=== PATIENT | male | born 1930 | race Caucasian/White ===

== ENCOUNTER 2016-08-14 09:25 | Outpatient (CLI) | payer MEDICARE | END 2016-08-14 09:26 | disposition home or self-care (01) | DX: E87.6 Hypokalemia (principal); N18.9 Chronic kidney disease, unspecified ==

== ENCOUNTER 2016-09-24 14:46 | Outpatient (CLI) | payer MEDICARE | END 2016-09-24 14:47 | disposition critical access hospital (66) | DX: K62.5 Hemorrhage of anus and rectum (principal); R19.7 Diarrhea, unspecified; Z79.01 Long term (current) use of anticoagulants | CPT/HCPCS: A0425; A0429 ==

== ENCOUNTER 2016-09-24 15:13 | Observation (INO) | payer MEDICARE ==
[2016-09-24] MEDS ORDERED: SODIUM CHLORIDE FLUSH 0.9% 10 ML SYRINGE IVP PRN (18:22)
[2016-09-24] MEDS ORDERED: ACETAMINOPHEN 325 MG SUPP PR PRN (20:35)
[2016-09-24] MEDS: FERROUS GLUCONATE 324 MG TABLET PO SCH (21:36)
[2016-09-24] MEDS: METOPROLOL TARTRATE 25 MG TABLET PO SCH (21:36)
[2016-09-24] MEDS: SODIUM CHLORIDE FLUSH 0.9% 10 ML SYRINGE IVP SCH (21:38)
[2016-09-25] MEDS: SODIUM CHLORIDE FLUSH 0.9% 10 ML SYRINGE IVP SCH ×2 (05:35→06:04)
[2016-09-25] MEDS ORDERED: PANTOPRAZOLE 40 MG TABLET PO SCH (07:00)
[2016-09-25] MEDS ORDERED: POTASSIUM CHLORIDE 20 MEQ TABLET PO ONE ×2 (07:02→11:00)
[2016-09-25] MEDS ORDERED: POTASSIUM CHLORIDE 20 MEQ TABLET PO SCH (08:00)
[2016-09-25] MEDS: METOPROLOL TARTRATE 25 MG TABLET PO SCH (08:06)
[2016-09-25] MEDS: FERROUS GLUCONATE 324 MG TABLET PO SCH (08:07)
[2016-09-25] MEDS ORDERED: POLYETHYLENE GLYCOL 3350 17 GM PACKET PO SCH (09:00)
[2016-09-25] MEDS ORDERED: MULTIVITAMIN TABLET PO SCH (09:00)
[2016-09-25] MEDS ORDERED: ALLOPURINOL 100 MG TABLET PO SCH (09:00)
[2016-09-25] MEDS ORDERED: LOSARTAN 50 MG TABLET PO SCH (09:00)
[2016-09-25] MEDS ORDERED: amLODIPine 5 MG TABLET PO SCH (09:00)
== END 2016-09-25 13:00 | disposition home or self-care (01) ==
DX: K92.1 Melena (principal); I48.91 Unspecified atrial fibrillation; Z79.02 Long term (current) use of antithrombotics/antiplatelets; I12.9 Hypertensive chronic kidney disease with stage 1 through stage 4 chronic kidney disease, or unspecified chronic kidney disease; N18.3 Chronic kidney disease, stage 3 (moderate); I08.1 Rheumatic disorders of both mitral and tricuspid valves; E87.6 Hypokalemia; F03.90 Unspecified dementia, unspecified severity, without behavioral disturbance, psychotic disturbance, mood disturbance, and anxiety; M10.9 Gout, unspecified; R33.9 Retention of urine, unspecified; K76.0 Fatty (change of) liver, not elsewhere classified; Z86.718 Personal history of other venous thrombosis and embolism; Z85.46 Personal history of malignant neoplasm of prostate; Z90.79 Acquired absence of other genital organ(s); Z79.899 Other long term (current) drug therapy
CPT/HCPCS: 36415; 80048; 80053; 83690; 85025; 85027; 85610; 85730; 86850; 86900; 86901; 99284; 99285; A9270; G0378

== ENCOUNTER 2016-10-09 13:33 | Day surgery (SDC) | payer MEDICARE ==
[2016-10-09] MEDS ORDERED: LACTATED RINGERS 1,000 ML IV ONE (14:06)
[2016-10-09] MEDS ORDERED: KETAMINE 500 MG/10 ML VIAL IVP ONE (14:10)
[2016-10-09] MEDS ORDERED: MIDAZOLAM 2 MG/2 ML VIAL IVP ONE (14:10)
[2016-10-09] MEDS ORDERED: PROPOFOL 200 MG/20 ML VIAL IVP ONE (14:10)
[2016-10-09] MEDS ORDERED: GLYCOPYRROLATE 1 MG/5 ML VIAL IVP ONE (14:10)
[2016-10-09 15:50] VITALS: BP 159/80
== END 2016-10-09 13:34 | disposition home or self-care (01) ==
LOC: SDS 13:33
PROVIDERS: ATTEND Surgery
PROC: 0DBH8ZZ Excision of Cecum, Via Natural or Artificial Opening Endoscopic (ICD-10-PCS; principal; 2016-10-09 14:15)
DX: K92.1 Melena (principal); D12.0 Benign neoplasm of cecum; I48.91 Unspecified atrial fibrillation; I50.9 Heart failure, unspecified; I10 Essential (primary) hypertension; F03.90 Unspecified dementia, unspecified severity, without behavioral disturbance, psychotic disturbance, mood disturbance, and anxiety; K64.8 Other hemorrhoids; K64.4 Residual hemorrhoidal skin tags
CPT/HCPCS: 45380; 88305; J7120

== ENCOUNTER 2016-11-18 14:16 | Outpatient (CLI) | payer MEDICARE | END 2016-11-18 14:17 | disposition home or self-care (01) | LOC: LAB.F 14:16 | PROVIDERS: ATTEND Physician Assistant Medical | DX: K62.5 Hemorrhage of anus and rectum (principal) ==

== ENCOUNTER 2016-11-18 16:49 | Outpatient (CLI) | payer MEDICARE | END 2016-11-18 16:50 | disposition critical access hospital (66) | LOC: EMS 16:49 | PROVIDERS: ATTEND Surgery | DX: K62.5 Hemorrhage of anus and rectum (principal) | CPT/HCPCS: A0425; A0429 ==

== ENCOUNTER 2016-11-18 17:14 | Emergency (ER) | payer MEDICARE ==
--- NOTE | 2016-11-18 17:21 | ED Physician Documentation ---
PD HPI GI BLEED - Stated complaint Stated Complaint: GI BLEED - History obtained from History obtained from: Patient, EMS - History of Present Illness Timing - onset: Other (86-year-old gentleman on Xarelto who was admitted here a few months ago for GI bleed, followup colonoscopy with polyp and internal hemorrhoids likely as the cause of lower GI bleeding. He's had spotting on and off for a month and when he mentioned it to the nurse at the assisted-living facility today he was transferred here for evaluation. There is no associated abdominal or rectal pain) Review of Systems Constitutional: denies: Fever, Chills GI: denies: Abdominal Pain, Nausea, Vomiting, Constipation, Diarrhea : reports: Reviewed and negative PD PAST MEDICAL HISTORY - Past Medical History Cardiovascular: Hypertension, Atrial fibrillation Respiratory: Shortness of breath, Sleep apnea Neuro: Dementia Endocrine/Autoimmune: None GI: GI bleed : None HEENT: Other Psych: None Musculoskeletal: None - Past Surgical History Past Surgical History: Yes HEENT: Tonsil/Adenoidectomy - Present Medications Home Medications: Ambulatory Orders Medication Instructions Recorded Confirmed Allopurinol 150 mg PO DAILY 10/21/12 11/18/16 Hydrochlorothiazide 25 mg PO QAM 10/21/12 11/18/16 Multivitamin [Multivitamins] 1 each PO DAILY 10/21/12 11/18/16 Acetaminophen [Tylenol] 650 mg NM Q6H PRN 11/16/12 11/18/16 Ferrous Gluconate 325 mg PO BID 07/21/15 11/18/16 Losartan Potassium 100 mg PO DAILY 07/21/15 11/18/16 Metoprolol Tartrate 25 mg PO TID 07/21/15 11/18/16 Omeprazole 20 mg PO DAILY 07/21/15 11/18/16 Potassium Chloride [Klor-Con] 20 meq PO BID 07/21/15 11/18/16 Rivaroxaban [Xarelto] 20 mg PO DAILY 11/18/16 11/18/16 - Allergies Allergies/Adverse Reactions: Allergies Allergy/AdvReac Type Severity Reaction Status Date / Time oxycodone [Oxycodone] Allergy Intermediate Rash Verified 11/18/16 17:20 oxycodone HCl * Allergy Intermediate Rash Verified 11/18/16 17:20 [From Percocet] Penicillins Allergy Mild Rash Verified 11/18/16 17:20 acetaminophen [From Tylox] Allergy Unknown Verified 11/18/16 17:20 - Social History Does the pt smoke?: No Smoking Status: Never smoker Does the pt drink ETOH?: No Does the pt have substance abuse?: No - Immunizations Immunizations are current?: Yes PD ED PE NORMAL - Vitals Vital signs reviewed: Yes - General General: No acute distress, Well developed/nourished - Abdomen Abdomen: Soft, Non tender - Rectal Rectal: Other (small BRB) - Neuro Neuro: No motor deficit, No sensory deficit - Psych Psych: Normal mood, Normal affect Results - Vitals Vitals: Vital Signs - 24 hr 11/18/16 17:18 Temperature 36.5 C Heart Rate 73 Respiratory 20 Rate Blood Pressure 179/99 H O2 Saturation 98 Oxygen O2 Source [With Activity] Room air O2 Source Room air - Labs Labs: Laboratory Tests 11/18/16 11/18/16 11/18/16 17:37 17:37 17:48 WBC 4.2 L RBC 3.34 L Hgb 10.9 L Hct 32.5 L MCV 97.1 H MCH 32.5 H MCHC 33.5 RDW 18.3 H Plt Count 172 MPV 7.5 Neut # 2.9 Lymph # 0.9 L [place] # 0.2 Eos # 0.2 Baso # 0.0 Absolute Nucleated RBC 0.00 Nucleated RBCs 0.1 Sodium 135 Potassium 3.8 Chloride 97 L Carbon Dioxide 27 Anion Gap 11.0 BUN 34 H Creatinine 1.1 Estimated GFR (MDRD) 64 L Glucose 111 H Calcium 9.0 Total Bilirubin 1.3 H AST 29 ALT 26 Alkaline Phosphatase 290 H Total Protein 7.7 Albumin 3.5 Globulin 4.2 Albumin/Globulin Ratio 0.8 L Lipase 21 L Urine Color YELLOW Urine Clarity CLOUDY Urine pH 7.0 Ur Specific [place] 1.015 Urine Protein 100 H Urine Glucose (UA) NEGATIVE Urine Ketones NEGATIVE Urine Occult Blood LARGE H Urine Nitrite NEGATIVE Urine Bilirubin NEGATIVE Urine Urobilinogen 0.2 (NORMAL) Ur Leukocyte Esterase NEGATIVE Urine RBC TNTC H Urine WBC 0-3 Ur Squamous Epith Cells NONE SEEN Urine Bacteria None Seen Ur Microscopic Review INDICATED Urine Culture Comments NOT INDICATED PD MEDICAL DECISION MAKING - ED course ED course: 86-year-old gentleman presents with ongoing but light rectal bleeding in the setting of known internal hemorrhoids and a colonoscopy just over a month ago. His H&H as well as other lab abnormalities including elevated BUN, alkaline Phosphatase, and hematuria are chronic. It doesn't sound like he's had a workup for the hematuria though. He does have some memory difficulties. Given that he does not recall the c-scope, might he have had a cysto and does not remember? He asked me to try to call his girlfriend, there was no answer I left a message to call back. She did call back and dxs were discussed. Asked her to make sure he gets in with PCP to see if he should still be on anticoagulation and if he has had urology w/u- if not needs one. Departure - Departure Disposition: 01 Home, Self Care Clinical Impression: Rectal bleeding, Hematuria, Adequate anticoagulation on anticoagulant therapy Condition: Good Record reviewed to determine appropriate education?: Yes Instructions: ED Hematochezia Stable Comments: If you have not had a workup for your hematuria ("blood in the urine"), you need to see a urologist. The closest to you is in [place], call [phone] for an appointment. Call your doctor to arrange a follow up appointment. Make the next available appointment. In the interim return anytime if worse or if new symptoms develop. Your blood pressure was elevated today on check in to the emergency department. This does not mean that you have hypertension, it is a common phenomenon to check into the emergency department and have elevated blood pressure. I recommend that you see your primary care physician within the week to have it rechecked when you're feeling better.
[2016-11-18 17:55] LABS: EOSINOPHILS # (AUTO) 0.2 10^3/uL (0.0-0.7); EOSINOPHILS % (AUTO) 3.8 %; HCT - HEMATOCRIT 32.5 % (42.0-52.0); HGB - HEMOGLOBIN 10.9 g/dL (14.0-18.0); LYMPHOCYTES # (AUTO) 0.9 10^3/uL (1.5-3.5); LYMPHOCYTES % (AUTO) 20.7 %; MEAN CORPUSCULAR HEMOGLOBIN 32.5 pg (27.0-31.0); MEAN CORPUSCULAR HGB CONC 33.5 g/dL (32.0-36.0); MEAN CORPUSCULAR VOLUME 97.1 fL (80.0-94.0); MEAN PLATELET VOLUME 7.5 fL (7.4-11.4); MONOCYTES # (AUTO) 0.2 10^3/uL (0.0-1.0); MONOCYTES % (AUTO) 5.3 %; NEUTROPHILS # (AUTO) 2.9 10^3/uL (1.5-6.6); NEUTROPHILS % (AUTO) 69.2 %; NUCLEATED RED BLOOD CELLS AUTO 0.1 /100WBC; RED BLOOD COUNT 3.34 10^6/uL (4.70-6.10); RED CELL DISTRIBUTION WIDTH 18.3 % (12.0-15.0); UNCORRECTED WHITE BLOOD COUNT 4.2 x10^3/uL; WHITE BLOOD COUNT 4.2 x10^3/uL (4.8-10.8)
[2016-11-18 18:06] LABS: BILIRUBIN,URINE NEGATIVE (NEGATIVE)
[2016-11-18 18:09] LABS: ALBUMIN/GLOBULIN RATIO 0.8 (1.0-2.2); BILIRUBIN,TOTAL 1.3 mg/dL (0.2-1.0); CREATININE 1.1 mg/dL (0.6-1.2); POTASSIUM 3.8 mmol/L (3.5-5.0); TOTAL PROTEIN 7.7 g/dL (6.7-8.2)
[2016-11-18 18:13] LABS: UA w/ MICROSCOPIC CHARGE YES
[2016-11-18 18:28] LABS: UR CULTURE IF IND NOT INDICATED; WBC,URINE 0-3 /HPF (0-3)
[2016-11-18 19:19] VITALS: BP 164/88
== END 2016-11-18 20:08 | disposition home or self-care (01) ==
LOC: EDUNIT# → ED 17:14
DX: K62.5 Hemorrhage of anus and rectum (principal); R31.9 Hematuria, unspecified; I48.91 Unspecified atrial fibrillation; Z79.01 Long term (current) use of anticoagulants; K63.5 Polyp of colon; K64.8 Other hemorrhoids; I10 Essential (primary) hypertension; F03.90 Unspecified dementia, unspecified severity, without behavioral disturbance, psychotic disturbance, mood disturbance, and anxiety; G47.30 Sleep apnea, unspecified
CPT/HCPCS: 36415; 80053; 81001; 81003; 81599; 82784; 82787; 83010; 83615; 83690; 83883; 84155; 84165; 85025; 85044; 86334; 86850; 86900; 86901; 87086; 99283; 99284

== ENCOUNTER 2017-01-18 05:07 | Outpatient (CLI) | payer MEDICARE | END 2017-01-18 05:08 | disposition EMS.NT | LOC: EMS 05:07 | PROVIDERS: ATTEND Surgery | DX: Z03.89 Encounter for observation for other suspected diseases and conditions ruled out (principal); W06.XXXA Fall from bed, initial encounter; Y92.10 Unspecified residential institution as the place of occurrence of the external cause ==

== ENCOUNTER 2017-01-27 08:05 | Outpatient (CLI) | payer MEDICARE | END 2017-01-27 08:06 | disposition critical access hospital (66) | LOC: EMS 08:05 | PROVIDERS: ATTEND Surgery | DX: K92.1 Melena (principal) | CPT/HCPCS: A0425; A0429 ==

== ENCOUNTER 2017-01-27 08:32 | Observation (INO) | payer MEDICARE ==
[2017-01-27] MEDS ORDERED: SODIUM CHLORIDE 0.9% 1,000 ML IV ONE (08:57)
[2017-01-27 09:23] LABS: BASOPHILS % (AUTO) 0.9 %; EOSINOPHILS % (AUTO) 0.6 %; HCT - HEMATOCRIT 28.5 % (42.0-52.0); HGB - HEMOGLOBIN 9.6 g/dL (14.0-18.0); LYMPHOCYTES # (AUTO) 0.4 10^3/uL (1.5-3.5); LYMPHOCYTES % (AUTO) 8.8 %; MEAN CORPUSCULAR HEMOGLOBIN 33.1 pg (27.0-31.0); MEAN CORPUSCULAR HGB CONC 33.7 g/dL (32.0-36.0); MEAN CORPUSCULAR VOLUME 98.2 fL (80.0-94.0); MEAN PLATELET VOLUME 6.8 fL (7.4-11.4); MONOCYTES # (AUTO) 0.2 10^3/uL (0.0-1.0); MONOCYTES % (AUTO) 4.7 %; NEUTROPHILS # (AUTO) 3.6 10^3/uL (1.5-6.6); NUCLEATED RED BLOOD CELLS AUTO 0.1 /100WBC; RED BLOOD COUNT 2.91 10^6/uL (4.70-6.10); UNCORRECTED WHITE BLOOD COUNT 4.3 x10^3/uL; WHITE BLOOD COUNT 4.3 x10^3/uL (4.8-10.8)
--- NOTE | 2017-01-27 09:30 | ED Physician Documentation ---
History of Present Illness - Stated complaint Stated Complaint: GI BLEED - Chief complaint Chief Complaint: Abd Pain - Additonal information Additional information: hx from pt 86 male from [place] pmhx autoimmune hemolytic anemia, CRF, monoclonal gammopathy, a fib DNR limited per EMS hx polyps removed from colon last spring, per MAC note had an int hemorrhoid, per op note pt had a cecal polyp and int hemorrhoids int has blood in BM heavy BRBPR today pt denies CP AP denies SOA NVD no blood thinners besides asa on MAR from [place] but MAC note dated states pt on coumadin, and dc summary from October 2016 states xarelto - pt does not know Review of Systems Constitutional: denies: Fever, Chills Cardiac: denies: Chest pain / pressure Respiratory: denies: Dyspnea GI: reports: Bloody / black stool. denies: Abdominal Pain, Nausea, Vomiting Neurologic: denies: Generalized weakness Endocrine: denies: Easy bruising / bleeding Immunocompromised: denies: Immunocompromised PD PAST MEDICAL HISTORY - Past Medical History Past Medical History: Yes Cardiovascular: Hypertension, Atrial fibrillation Respiratory: Shortness of breath, Sleep apnea Neuro: Dementia Endocrine/Autoimmune: None GI: GI bleed : None HEENT: Other Psych: None Musculoskeletal: None - Past Surgical History Past Surgical History: Yes General: Colonoscopy HEENT: Tonsil/Adenoidectomy - Present Medications Home Medications: Ambulatory Orders Medication Instructions Recorded Confirmed Metoprolol Tartrate 25 mg PO TID 07/21/15 01/27/17 Potassium Chloride [Klor-Con] 20 meq PO BID 07/21/15 01/27/17 Rivaroxaban [Xarelto] 20 mg PO DAILY 11/18/16 01/27/17 Acetaminophen 650 mg PO Q4H PRN 01/27/17 01/27/17 Allopurinol 150 mg PO DAILY 01/27/17 01/27/17 Cetirizine HCl 10 mg PO DAILY 01/27/17 01/27/17 Ferrous Gluconate 324 mg PO BID 01/27/17 01/27/17 Hydrochlorothiazide 25 mg PO DAILY 01/27/17 01/27/17 Losartan Potassium 100 mg PO DAILY 01/27/17 01/27/17 Multivitamin [Multivitamins] 1 cap PO DAILY 08/22/17 08/22/17 Omeprazole 20 mg PO DAILY 01/27/17 01/27/17 - Allergies Allergies/Adverse Reactions: Allergies Allergy/AdvReac Type Severity Reaction Status Date / Time oxycodone [Oxycodone] Allergy Intermediate Rash Verified 11/18/16 17:20 oxycodone HCl * Allergy Intermediate Rash Verified 11/18/16 17:20 [From Percocet] Penicillins Allergy Mild Rash Verified 11/18/16 17:20 - Social History Does the pt smoke?: No Smoking Status: Never smoker Does the pt drink ETOH?: No Does the pt have substance abuse?: No - Immunizations Immunizations are current?: Yes - POLST Patient has POLST: Yes PD ED PE NORMAL - Vitals Vital signs reviewed: Yes - Neck Neck: Supple, no meningeal sign - Cardiac Cardiac: RRR - Respiratory Respiratory: No respiratory distress, Clear bilaterally - Abdomen Abdomen: Soft, Non tender - Rectal Rectal: Other (no hemorrhoid, no fissure, no mass on BIRD, tete BRBPR) - Derm Derm: Normal color - Neuro Neuro: No: Alert and oriented X 3 (confused) Results - Vitals Vitals: Vital Signs - 24 hr 01/27/17 01/27/17 01/27/17 08:37 09:53 11:00 Temperature 36.7 C Heart Rate 91 81 97 Respiratory 18 18 Rate Blood Pressure 159/95 H 159/88 H 151/76 H O2 Saturation 100 99 95 Oxygen O2 Source [With Activity] Room air O2 Source Room air - EKG (time done) 0910 Rate: Rate (enter#) Rhythm: Atrial fibrillation (not new) [place]: Normal Intervals: Normal [place], RBBB Compare to prior EKG: Changed from prior EKG (RBBB is new) - Labs Labs: Laboratory Tests 01/27/17 01/27/17 01/27/17 09:14 09:14 09:14 WBC 4.3 L RBC 2.91 L Hgb 9.6 L Hct 28.5 L MCV 98.2 H MCH 33.1 H MCHC 33.7 RDW 19.0 H Plt Count 136 MPV 6.8 L Neut # 3.6 Lymph # 0.4 L [place] # 0.2 Eos # 0.0 Baso # 0.0 Absolute Nucleated RBC 0.00 Nucleated RBCs 0.1 PT 20.8 H INR 1.8 H Sodium 135 Potassium 3.3 L Chloride 102 Carbon Dioxide 22 Anion Gap 11.0 BUN 37 H Creatinine 1.4 H Estimated GFR (MDRD) 48 L Glucose 92 Calcium 8.5 Total Bilirubin 2.3 H AST 34 ALT 20 Alkaline Phosphatase 315 H Troponin I Total Protein 7.3 Albumin 3.1 L Globulin 4.2 Albumin/Globulin Ratio 0.7 L Lipase 19 L Blood Type Antibody Screen 01/27/17 01/27/17 09:14 09:14 WBC RBC Hgb Hct MCV MCH MCHC RDW Plt Count MPV Neut # Lymph # [place] # Eos # Baso # Absolute Nucleated RBC Nucleated RBCs PT INR Sodium Potassium Chloride Carbon Dioxide Anion Gap BUN Creatinine Estimated GFR (MDRD) Glucose Calcium Total Bilirubin AST ALT Alkaline Phosphatase Troponin I < 0.04 Total Protein Albumin Globulin Albumin/Globulin Ratio Lipase Blood Type A POSITIVE Antibody Screen NEGATIVE PD MEDICAL DECISION MAKING - ED course ED course: called Angely Lott back and got an updated MAR - pt is indeed on xarelto Hgb dropped from 10.9-9.6 - will admit to medicine with surgical consult also note bili has risen - pt has no abd pain at this time - perhaps can get GB sono while admitted but don't feel needs to be done in ER new RBBB - no CP - will add on trop (neg) seen by hospitalist who rec observation Departure - Departure Disposition: ED Place in Observation Clinical Impression: GI bleeding Qualifiers: GI bleed type/associated pathology: unspecified gastrointestinal hemorrhage type Qualified Code(s): K92.2 - Gastrointestinal hemorrhage, unspecified Condition: Fair Discharge Date/Time: 01/27/17 12:20
[2017-01-27 09:36] LABS: ALBUMIN/GLOBULIN RATIO 0.7 (1.0-2.2); BILIRUBIN,TOTAL 2.3 mg/dL (0.2-1.0); CALCIUM 8.5 mg/dL (8.5-10.3); CREATININE 1.4 mg/dL (0.6-1.2); POTASSIUM 3.3 mmol/L (3.5-5.0); TOTAL PROTEIN 7.3 g/dL (6.7-8.2)
[2017-01-27 09:39] LABS: INR 1.8 (0.8-1.2); PT - PROTHROMBIN TIME 20.8 secs (9.9-12.6)
[2017-01-27] MEDS ORDERED: ONDANSETRON ODT 4 MG TABLET TL PRN (11:39)
[2017-01-27] MEDS ORDERED: ACETAMINOPHEN 325 MG TABLET PO PRN (11:39)
[2017-01-27] MEDS ORDERED: ONDANSETRON 4 MG/2 ML VIAL IVP PRN (11:39)
[2017-01-27] MEDS ORDERED: SODIUM CHLORIDE FLUSH 0.9% 10 ML SYRINGE IVP PRN (11:39)
[2017-01-27] MEDS ORDERED: oxyCODONE 5 MG TABLET PO PRN (11:39)
[2017-01-27] MEDS: SODIUM CHLORIDE 0.9% 1,000 ML IV SCH (13:20)
[2017-01-27] MEDS: METOPROLOL TARTRATE 25 MG TABLET PO SCH ×2 (13:30→21:14)
[2017-01-27] MEDS: POTASSIUM CHLOR 10 MEQ/100 ML 100 ML IV SCH ×3 (13:31→17:13)
[2017-01-27] MEDS: SODIUM CHLORIDE FLUSH 0.9% 10 ML SYRINGE IVP SCH ×2 (13:32→21:15)
[2017-01-27 14:33] LABS: BASOPHILS % (AUTO) 0.4 %; EOSINOPHILS % (AUTO) 0.5 %; HCT - HEMATOCRIT 29.8 % (42.0-52.0); HGB - HEMOGLOBIN 10.1 g/dL (14.0-18.0); LYMPHOCYTES # (AUTO) 0.3 10^3/uL (1.5-3.5); LYMPHOCYTES % (AUTO) 5.6 %; MEAN CORPUSCULAR HEMOGLOBIN 33.1 pg (27.0-31.0); MEAN CORPUSCULAR HGB CONC 33.7 g/dL (32.0-36.0); MEAN CORPUSCULAR VOLUME 98.2 fL (80.0-94.0); MEAN PLATELET VOLUME 7.3 fL (7.4-11.4); MONOCYTES # (AUTO) 0.1 10^3/uL (0.0-1.0); MONOCYTES % (AUTO) 2.1 %; NEUTROPHILS # (AUTO) 4.8 10^3/uL (1.5-6.6); NEUTROPHILS % (AUTO) 91.4 %; RED BLOOD COUNT 3.04 10^6/uL (4.70-6.10); RED CELL DISTRIBUTION WIDTH 19.1 % (12.0-15.0); UNCORRECTED WHITE BLOOD COUNT 5.3 x10^3/uL; WHITE BLOOD COUNT 5.3 x10^3/uL (4.8-10.8)
[2017-01-27 15:32] LABS: NP AUTO DIFFERENTIAL? NO; NP MAN DIFFERENTIAL? YES; PLATELET ESTIMATE, MANUAL NORMAL (130-450,000) (NORMAL); PLATELET MORPHOLOGY NORMAL APPEARANCE (NORMAL)
[2017-01-27 20:00] LABS: BASOPHILS # (AUTO) 0.1 10^3/uL (0.0-0.1); BASOPHILS % (AUTO) 0.8 %; HCT - HEMATOCRIT 28.8 % (42.0-52.0); HGB - HEMOGLOBIN 9.8 g/dL (14.0-18.0); LYMPHOCYTES # (AUTO) 0.3 10^3/uL (1.5-3.5); MEAN CORPUSCULAR HEMOGLOBIN 33.6 pg (27.0-31.0); MEAN CORPUSCULAR HGB CONC 34.1 g/dL (32.0-36.0); MEAN CORPUSCULAR VOLUME 98.6 fL (80.0-94.0); MEAN PLATELET VOLUME 7.4 fL (7.4-11.4); MONOCYTES # (AUTO) 0.2 10^3/uL (0.0-1.0); MONOCYTES % (AUTO) 3.2 %; NEUTROPHILS # (AUTO) 5.6 10^3/uL (1.5-6.6); RED BLOOD COUNT 2.92 10^6/uL (4.70-6.10); RED CELL DISTRIBUTION WIDTH 19.1 % (12.0-15.0); UNCORRECTED WHITE BLOOD COUNT 6.2 x10^3/uL; WHITE BLOOD COUNT 6.2 x10^3/uL (4.8-10.8)
[2017-01-27] MEDS ORDERED: MIRTAZAPINE 15 MG TABLET PO SCH (21:00)
[2017-01-27] MEDS: POTASSIUM CHLORIDE 20 MEQ TABLET PO SCH (21:12)
[2017-01-28] MEDS: SODIUM CHLORIDE 0.9% 1,000 ML IV SCH (01:35)
[2017-01-28] MEDS: SODIUM CHLORIDE FLUSH 0.9% 10 ML SYRINGE IVP SCH (05:25)
[2017-01-28] MEDS: METOPROLOL TARTRATE 25 MG TABLET PO SCH (05:33)
[2017-01-28 06:12] LABS: BASOPHILS % (AUTO) 0.6 %; EOSINOPHILS % (AUTO) 0.5 %; HCT - HEMATOCRIT 28.7 % (42.0-52.0); HGB - HEMOGLOBIN 9.7 g/dL (14.0-18.0); LYMPHOCYTES # (AUTO) 0.6 10^3/uL (1.5-3.5); LYMPHOCYTES % (AUTO) 12.1 %; MEAN CORPUSCULAR HEMOGLOBIN 33.6 pg (27.0-31.0); MEAN CORPUSCULAR HGB CONC 33.8 g/dL (32.0-36.0); MEAN CORPUSCULAR VOLUME 99.4 fL (80.0-94.0); MEAN PLATELET VOLUME 7.7 fL (7.4-11.4); MONOCYTES # (AUTO) 0.2 10^3/uL (0.0-1.0); MONOCYTES % (AUTO) 5.2 %; NEUTROPHILS # (AUTO) 3.9 10^3/uL (1.5-6.6); NEUTROPHILS % (AUTO) 81.6 %; RED BLOOD COUNT 2.89 10^6/uL (4.70-6.10); RED CELL DISTRIBUTION WIDTH 19.3 % (12.0-15.0); UNCORRECTED WHITE BLOOD COUNT 4.7 x10^3/uL; WHITE BLOOD COUNT 4.7 x10^3/uL (4.8-10.8)
[2017-01-28 06:21] LABS: ALBUMIN/GLOBULIN RATIO 0.8 (1.0-2.2); BILIRUBIN,TOTAL 2.7 mg/dL (0.2-1.0); CALCIUM 8.1 mg/dL (8.5-10.3); CREATININE 1.2 mg/dL (0.6-1.2); POTASSIUM 3.7 mmol/L (3.5-5.0); TOTAL PROTEIN 6.6 g/dL (6.7-8.2)
--- NOTE | 2017-01-28 08:01 | Discharge Plan ---
Discharge Plan Disposition: 01 Home, Self Care Condition: Fair Diet: Regular Activity Restrictions: Activity as Tolerated Shower Restrictions: No Driving Restrictions: Yes (no driving) Additional Instructions or Follow Up instructions: You were brought to the hospital because you've been having blood in your stool and on your rectum when you wipe. You did the same thing in September of this year and a colonoscopy revealed internal hemorrhoids as the cause of bleeding. We think the problem is that you're on blood thinners for your initial fibrillation. Those blood thinners reduce your risk of stroke. However, you also have internal hemorrhoids. Internal hemorrhoids have a tendency to bleed anyway. But your blood thinner makes you bleed more. In weighing the risk and benefits of you staying on a blood thinner, it is clear that you have a tendency to bleed enough to need transfusions. With this admission, you did not require transfusions. As such we're recommending that you stop your blood thinner. However, please discuss this with your primary care provider. You and he, after discussion, may up with a different conclusion. No Smoking: If you smoke, Please STOP! Call for help.
[2017-01-28 08:07] VITALS: BP 167/90
[2017-01-28] MEDS ORDERED: CETIRIZINE 10 MG TABLET PO SCH (09:00)
[2017-01-28] MEDS ORDERED: LOSARTAN 50 MG TABLET PO SCH (09:00)
[2017-01-28] MEDS ORDERED: ALLOPURINOL 100 MG TABLET PO SCH (09:00)
[2017-01-28] MEDS ORDERED: POLYETHYLENE GLYCOL 3350 17 GM PACKET PO SCH (09:00)
[2017-01-28] MEDS: POTASSIUM CHLORIDE 20 MEQ TABLET PO SCH (09:07)
--- NOTE | 2017-01-28 16:54 | DISCHARGE SUMMARY ---
DATE OF ADMISSION: 01/27/2017 DATE OF DISCHARGE: 01/28/2017 DISCHARGE DIAGNOSES: 1. Melena. 2. Long-term current use of anticoagulants. 3. Internal hemorrhoids. 4. Hypokalemia. 5. Memory loss. DISCHARGE MEDICATIONS: 1. Acetaminophen 650 mg p.o. q.4h. p.r.n.. 2. Allopurinol 150 mg p.o. daily. 3. Cetirizine 10 mg p.o. daily. 4. Ferrous gluconate 324 mg p.o. b.i.d.. 5. Hydrochlorothiazide 25 mg daily. 6. Klor Con 20 mEq p.o. b.i.d.. 7. Losartan 100 mg p.o. daily. 8. Metoprolol 25 mg p.o. t.i.d.. 9. Multivitamin 1 p.o. daily. 10. Omeprazole 20 mg p.o. daily. Xarelto has been discontinued. HOSPITAL COURSE: This gentleman is an 86-year-old man who has a documented history of internal hemorr hoids from a previous lower GI bleed admission. He was admitted 09/2016 for melena and anemia. He rec eived transfusions. In the outpatient setting a colonoscopy in 10/2016 showed him to have a benign tu bular adenoma, and internal hemorrhoids that were most likely the source of his bleeding according to General Surgery. He is on Xarelto for atrial fibrillation. He lives in an assisted living facility a nd has continued to have bright red blood per rectum intermittently. Over the last few days he has craft d more bleeding than usual, and increased amount and alarmed the family and his assisted living facil ity and as such, he was brought to the hospital. In the hospital, he has stable vital signs at 159/95 , pulse 91. He is oxygenating well on room air. He is a vague, slightly disoriented, forgetful elderl y man in no acute distress. Hemoglobin was 9.6. His hemoglobin on 11/2014 was 10.9. His hemoglobin was 11.1 and 10.8. He was placed in observation overnight for GI bleed. He remained hemodynamically stable. He was not t achycardic and blood pressure remained slightly elevated. Serial CBC showed hemoglobin to be stable a t 9.8-9.7. I discussed the case with his power of hard rock miner blasting and his daughter. I explained to her that I think the source of his bleeding is internal hemorrhoids from the continued Xarelto. Her name was Vania Ashley at phone number [phone]. I also spoke to his girlfriend, Jenifer Abreu, at [phone]. I stopped his Xarelto and have recommended that he be seen in followup with his prior primary care pr samy. If he continues to have rectal bleeding from the internal hemorrhoids consider hemorrhoidecto my or hemorrhoid banding. As such, he is discharged in stable condition. His blood pressure at the time of discharge is 167/90 with a pulse of 80, respirations 16 and temperature is 37.1. He is a lean, lanky, tall, vague elderly gentleman. Male pattern baldness, salt and pepper gabriel hair that remains. Neck is supple. No JVD, sl ightly kyphotic posture and with clear lungs, a slow irregular rate and rhythm with a soft systolic e jection murmur left lower sternal border. Abdomen is soft, nontender and without organomegaly and nor mal bowel sounds. The ankles had no edema. He was able to be independent with he was able to get up t o the edge of the bed and be independent with regards to going to the bathroom and only needed standb y assistance. He is encouraged to followup with his primary care provider Natalio Landrum. I have discussed the case wi th his daughter. I again reminded that he is going to be off Xarelto. If his primary care provider wi shes to discuss that with the patient or get a second opinion, that would be great. JOB #: [id number] EXT JOB #:[id number]
--- NOTE | 2017-01-29 11:00 | HISTORY & PHYSICAL EXAMINATION ---
DATE OF ADMISSION: 01/27/2017 PRIMARY CARE PROVIDER: Edin Andres MD. ADMITTING PROVIDER: Isa Mayes MD. CHIEF COMPLAINT: Bright red blood per rectum. HISTORY OF PRESENT ILLNESS: The patient is an 86-year-old white man who already has anemia of chronic disease, autoimmune hemolytic anemia, and iron deficiency anemia. He was admitted with bright red bl ood per rectum, September 2016, with a concomitant disorder of atrial fibrillation on anticoagulation. Du ring that stay, he did receive a couple of units of packed cells. He was sent home after hemoglobin r emained stable, and he was monitored. He was seen in the outpatient setting by General Surgery and un derwent a colonoscopy in October 2016 and found to have a benign tubular adenoma, as well as internal hem orrhoids. In the body of the report, the surgeon feels that his lower GI bleeding from September 2016 was attributed to internal hemorrhoids. The patient lives at [facility]. Prior to living at [facility], he was living independently but not doing very well. He was ignoring his hygiene. He had not bathed for a month. Not feeding himself. He was not able to pay his bills, so his daughter took over. She is now his power of balloon design printer. She plac ed him at [facility], and she feels that he has improved with regard to food, hygiene, but the overa ll will to live seems to be diminished. He is sleeping more and more. Mentally, he is less and less w ith it. His daughter pays the bills. She has long-term plans for him to remain at [facility]. As his needs increased, she will ramp up services and care as he needs it. He gets to his own meals. Right now, he goes for rides in the car with his girlfriend, Jenifer. He does not ever want to leave the [facility] again, not even to see urologist for followup for his prostate cancer. Right now, he leaves the [facility] to go to meals with his girlfriend and to buy groceries. Prior to being at [facility], he had problems with decubitus ulcers and sores on his rear end and penis. He was evaluated in the emergency room by Dr. Pulliam. He had normal vital signs, and hemoglobin was s lightly diminished at 9.6. Baseline hemoglobin has been up to 10 or 11. She wanted him observed for G I bleed. I spoke to General Surgery who said that they already knew the source of his bleeding and as such were not interested in rescoping this gentleman. However, they would intervene if his hemorrhoi ds were bleeding excessively. PAST MEDICAL HISTORY 1. 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 2. Pneumonia with admission, August 2012, July 2014 3. Acalculous acute cholecystitis with sepsis, July 2015. 4. Ground level fall, July 2015. 5. Gout. 6. Hypertension. 7. Erectile dysfunction. 8. Prostate cancer history with history of prostatectomy. He has urinary frequency and urgency. 9. Herpes skin infection. 10. Chronic atrial fibrillation. On anticoagulation initially with Coumadin and then switched to Xare lto because of noncompliance. 11. Diverticulosis. 12. Anemia of iron deficiency as well as chronic kidney disease. 13. Obstructive sleep apnea with hypopnea syndrome, mild. He is supposed to be using nasal CPAP. 14. Fatty liver. ALLERGIES: HE IS ALLERGIC TO 1. ACETAMINOPHEN, BUT HE TAKES IT ON HIS MEDICATION LIST FROM [facility] WITHOUT ANY PROBLEMS. 2. OXYCODONE. 3. PENICILLIN. MEDICATIONS 1. Acetaminophen 325 mg tablet 2 tablets p.o. every 4 hours p.r.n. 2. Allopurinol 150 mg p.o. daily. 3. Cetirizine 10 mg p.o. daily. 4. Ferrous gluconate 324 mg p.o. b.i.d. 5. Hydrochlorothiazide 25 p.o. daily. 6. Klor-Con 20 mEq p.o. b.i.d. 7. Losartan 100 mg p.o. daily. 8. Metoprolol tartrate 25 mg p.o. t.i.d. 9. Multivitamin 1 p.o. daily. 10. Omeprazole 20 mg p.o. daily. 11. Xarelto daily. SOCIAL HISTORY: He never smoked. Never had problems with alcohol. 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 He ended up with a PA-C in [place] planning and lived in [place], [place], [place], [place], [place], and even [place] for a short time. He retired to [employer]. 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 He has a girlfriend named Jenifer who lives 15 minutes away. They go to [employer] 3 times a week together and also goes out to dinner with his girlfri end 3 times a week. FAMILY HISTORY: Mom and dad in their 60s and 70s of old age. One sister is a retired nurse and e daniellaoys good health. Brother is alive and healthy. Two children are healthy. REVIEW OF SYSTEMS: Vague. He seems to be forgetful, elderly gentleman who fades off in mid sentence. He is cooperative and prompts easily but really does not answer many questions. Per his daughter, he is just losing the will to live. He is becoming sleepier over time. He is having increasing balance d ifficulties and has fallen. She does not describe any specific abdominal pain, coughing, wheezing, fe horacio. She last saw him 6 months ago. She was planning on visiting him this week, but her was i njured in a horse riding accident and has vertebral compression fractures and rib fractures, so she w ill be delaying her visit to her dad. PHYSICAL EXAMINATION VITAL SIGNS: He is seen in the emergency room with a temperature of 36.8, pulse 77, blood pressure 15 3/87, respirations 16, and 95% on room air. GENERAL: He is a lean, lanky, vague, elderly gentleman who appears to have bilateral temporal wasting and loss of diffuse muscle mass, but not severe. Alert, cooperative, but again very vague. HEAD AND NECK: Unremarkable. No trauma. NECK: Supple neck without JVD or goiter. LUNGS: Completely clear without crackles, rhonchi, or wheezing, and no increased respiratory effort. CARDIOVASCULAR: PMI normally placed with a slow, irregular rate and rhythm. ABDOMEN: Soft, nontender. Normal bowel sounds. EXTREMITIES: Decreased muscle mass without clubbing, cyanosis, or edema. NEUROLOGIC: Oriented to person. He cannot figure out where he is right now or why he is here, but whe n you tell him, he smiled and is able to remember a few minutes later. He is cooperative follow 1-geovanny p commands. Speech is slow, occasionally mumbles. He sways when I stand to do Romberg testing on him and I touch him to maintain his balance, but no tremors, no unilateral focal weakness. LABORATORY DATA: Hemoglobin was 9.6, hematocrit 28.5, platelets 136. INR 1.8. Sodium 135, potassium 3 .3, BUN 37, creatinine 1.4, GFR 48. Total bilirubin 2.3; that is chronic for him. Alkaline phosphatas e 315. ASSESSMENT/PLAN 1. Melena. Place in observation with [id number] hemoglobin and hematocrit. Transfuse as needed. Radhika rce attributed to internal hemorrhoids. See #2. I have already spoken to General Surgery. No interve ntion at this time. 2. Chronic atrial fibrillation on anticoagulation with good rate control. Stop Xarelto. 3. Dementia. I have had a long talk with the daughter. She states that he hates coming to the [facility], absolutely hates it. It was very distressing for him to come here and distressing for her to make him come here, but his assisted living facility must do this for any change in patient status. She is going to be considering possible palliative care transition in the next few weeks after she discusse s it with her brother. JOB #: [id number] EXT JOB #:[id number]
== END 2017-01-28 11:02 | disposition home or self-care (01) ==
LOC: EDUNIT# → ED 08:32 → OBS 11:39
PROVIDERS: ADMIT Specialist; ATTEND Specialist
DX: K92.1 Melena (principal); K64.8 Other hemorrhoids; E87.6 Hypokalemia; R41.3 Other amnesia; I48.91 Unspecified atrial fibrillation; Z79.01 Long term (current) use of anticoagulants; D59.1 Other autoimmune hemolytic anemias; D50.9 Iron deficiency anemia, unspecified; I12.9 Hypertensive chronic kidney disease with stage 1 through stage 4 chronic kidney disease, or unspecified chronic kidney disease; N18.9 Chronic kidney disease, unspecified; D63.1 Anemia in chronic kidney disease; M10.9 Gout, unspecified; R35.0 Frequency of micturition; R39.15 Urgency of urination; Z86.010 Personal history of colon polyps; G47.33 Obstructive sleep apnea (adult) (pediatric); K76.0 Fatty (change of) liver, not elsewhere classified; Z87.01 Personal history of pneumonia (recurrent); Z85.46 Personal history of malignant neoplasm of prostate; Z90.79 Acquired absence of other genital organ(s); F03.90 Unspecified dementia, unspecified severity, without behavioral disturbance, psychotic disturbance, mood disturbance, and anxiety
CPT/HCPCS: 36415; 80053; 83690; 84153; 84484; 85025; 85610; 86850; 86900; 86901; 93005; 96360; 99284; A9270; G0378

== ENCOUNTER 2017-02-05 08:00 | Outpatient (CLI) | payer MEDICARE ==
[2017-02-05 17:59] LABS: BASOPHILS % (AUTO) 0.9 %; EOSINOPHILS # (AUTO) 0.1 10^3/uL (0.0-0.7); EOSINOPHILS % (AUTO) 1.2 %; HCT - HEMATOCRIT 29.5 % (42.0-52.0); HGB - HEMOGLOBIN 9.9 g/dL (14.0-18.0); LYMPHOCYTES # (AUTO) 0.4 10^3/uL (1.5-3.5); LYMPHOCYTES % (AUTO) 7.8 %; MEAN CORPUSCULAR HEMOGLOBIN 33.4 pg (27.0-31.0); MEAN CORPUSCULAR HGB CONC 33.4 g/dL (32.0-36.0); MEAN CORPUSCULAR VOLUME 99.8 fL (80.0-94.0); MONOCYTES # (AUTO) 0.2 10^3/uL (0.0-1.0); MONOCYTES % (AUTO) 3.4 %; NEUTROPHILS # (AUTO) 4.7 10^3/uL (1.5-6.6); NEUTROPHILS % (AUTO) 86.7 %; NUCLEATED RED BLOOD CELLS AUTO 0.1 /100WBC; RED BLOOD COUNT 2.96 10^6/uL (4.70-6.10); RED CELL DISTRIBUTION WIDTH 19.7 % (12.0-15.0); UNCORRECTED WHITE BLOOD COUNT 5.4 x10^3/uL; WHITE BLOOD COUNT 5.4 x10^3/uL (4.8-10.8)
[2017-02-05 18:08] LABS: ALBUMIN/GLOBULIN RATIO 0.6 (1.0-2.2); BILIRUBIN,TOTAL 1.9 mg/dL (0.2-1.0); CALCIUM 8.8 mg/dL (8.5-10.3); CREATININE 1.4 mg/dL (0.6-1.2); POTASSIUM 3.7 mmol/L (3.5-5.0); TOTAL PROTEIN 7.2 g/dL (6.7-8.2)
== END 2017-02-05 08:01 | disposition home or self-care (01) ==
LOC: LAB.F 08:00
PROVIDERS: ATTEND Physician Assistant Medical
DX: K62.5 Hemorrhage of anus and rectum (principal); R53.1 Weakness; R53.83 Other fatigue
CPT/HCPCS: 36415; 80053; 85025

== ENCOUNTER 2017-02-10 13:44 | Outpatient (CLI) | payer MEDICARE | END 2017-02-10 13:45 | disposition EMS.NT | LOC: EMS 13:44 | PROVIDERS: ATTEND Surgery | DX: R53.1 Weakness (principal); W18.39XA Other fall on same level, initial encounter; Z91.81 History of falling; Y92.098 Other place in other non-institutional residence as the place of occurrence of the external cause ==

== ENCOUNTER 2017-02-12 13:29 | Outpatient (CLI) | payer MEDICARE | END 2017-02-12 13:30 | disposition home or self-care (01) | LOC: LAB.F 13:29 | PROVIDERS: ATTEND Physician Assistant Medical | DX: Z85.46 Personal history of malignant neoplasm of prostate (principal) | CPT/HCPCS: 36415; G0103; 84153 ==

== ENCOUNTER 2017-02-13 10:00 | Outpatient (CLI) | payer MEDICARE ==
--- NOTE | 2017-02-13 15:24 | CONSULTATION NOTE ---
Palliative Care Consultation - Referral Referring Provider: Jenifer Beverly PA-C Time of Visit: 10:00 Referral setting: Assisted living (Seen in home setting due to taxing and considerable effort required to leave the home secondary to being wheelchair bound due to significant weakness.) - Information Sources History obtained from: Patient, Family (Daughter, Vania) Exam limitations: Clinical condition (Dementia) - History of Present Illness Brief History of Present Illness: [id number] for Home Health: The patient is home-bound due to severe and generalized weakness following hospitalization for anemia secondary to GI bleeding. He would benefit from Home Physical Therapy for evaluation and treatment for safety and for a home exercise program for strengthening. He also would benefit from an evaluation for an upgraded wheelchair. He would benefit from speech language evaluation and treatment for dysphagia and aspiration risk. Thank you, Jenifer Beverly PA-C, for asking the palliative care consult service to be involved in the care of your patient. I am asked to provide support regarding progressive weakness, increased falls, anemia, rectal bleeding symptom management and goals of care. This is an 86-year-old man with a h/o internal hemorrhoids, admitted 09/2016 for GI bleeding and received transfusions. He already has anemia of chronic disease , autoimmune hemolytic anemia, and iron deficiency anemia. A colonoscopy 10/2016 revealed tubular adenoma and internal hemorrhoids that were most likely the source of the GI bleeding. His Xarelto for atrial fibrillation was subsequently discontinued. He lives in [facility] after not doing very well living independently. He had not bathed for a month, was not feeding himself, neglected opening mail and paying bills. His daughter became his POA and placed him at [facility]. He has improved since being here but his daughter notes his cognition is declining (he is often confused and forgetful) is worried that he may be depressed. She reports he seems to be giving up. 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 He lived in [place] and climbed mountains. When his body one day said stop he bought a boat and sailed. More recently he had a girlfriend, Jenifer, with whom he used to go to [employer] regularly to exercise and dined out together several times a week. He also used to go to a 10am chair workout here in the facility. Now he sleeps more and more and no longer participates in any activities or goes out. When I assessed him, he admitted he is cut off from most of life. He does not have an explanation for this change but says he has less energy. He perceives his quality of life as fair, but he denies feeling in a low mood, being depressed, or wanting to . He values his friendships here with old, old, old friends whom he eats with in the dining room at every meal and looks forward to seeing every day. They are Sarbjit and Crystal. Crystal is a friend he knew many years ago, they used to travel together and go dancing. Now, coincidentally , they both ended up living here. He is very weak in his lower extremities with severe deconditioning. He requires a one-person assist for transfers. He would like to have physical therapy for strengthening and reconditioning. He also reports coughing during meals, indicating possible dysphagia and increased risk for aspiration. He says hecoughts only at meals, not any other time. He is articulate and interactive, but knows he is forgetful and has memory problems. He agreed to let me administer the MMSE, and his score is 16, indicating moderate to severe cognitive impairment. His daughter Vania reports he doesnt ask for help, but is confused a lot and is more and more forgetful. He says he is satisfied with [facility], its a fine institution, but they have overkill and wake him up at 2-3am to use the toilet. It is unclear if this is actually the case. Information obtained from patient, patients daughter, caretaking staff, and EMR chart notes from hospitalist. 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) GI: reports: GI bleed, Other (diverticulosis; acalculous acute cholecystitis with sepsis) : reports: None, Other (erectile dysfunction) HEENT: reports: Other Psych: reports: None Musculoskeletal: reports: None, Osteoarthritis (degenerative joint disease, lumbar), Gout Derm: reports: Other (herpes skin infection) MRSA Hx?: No - Past Surgical History General: reports: Colonoscopy HEENT: reports: Tonsil/Adenoidectomy - Substance History Use: Uses substance without health or social issues: NONE Social History - Living Situation Living arrangement: Assisted living ([facility]) Living Situation: With caregiver(s) Support System: Two "old, old, old" friends he eats with daily at the facility: November Medications/Allergies - Medications Home Medications: Ambulatory Orders Medication Instructions Recorded Confirmed Metoprolol Tartrate 25 mg PO TID 07/21/15 02/13/17 Potassium Chloride [Klor-Con] 20 meq PO BID 07/21/15 02/13/17 Acetaminophen 650 mg PO Q4H PRN 01/27/17 02/13/17 Allopurinol 150 mg PO DAILY 01/27/17 02/13/17 Cetirizine HCl 10 mg PO DAILY 01/27/17 02/13/17 Ferrous Gluconate 324 mg PO BID 01/27/17 02/13/17 Hydrochlorothiazide 25 mg PO DAILY 01/27/17 02/13/17 Losartan Potassium 100 mg PO DAILY 01/27/17 02/13/17 Multivitamin [Multivitamins] 1 cap PO DAILY 01/27/17 02/13/17 Omeprazole 20 mg PO DAILY 01/27/17 02/13/17 - Allergies Allergies/Adverse Reactions: Allergies Allergy/AdvReac Type Severity Reaction Status Date / Time oxycodone [Oxycodone] Allergy Intermediate Rash Verified 11/18/16 17:20 oxycodone HCl * Allergy Intermediate Rash Verified 11/18/16 17:20 [From Percocet] Penicillins Allergy Mild Rash Verified 11/18/16 17:20 Review of Systems - Constitutional Constitutional: reports: Weakness - Cardiovascular Cariovascular: reports: Edema (chronic). denies: Chest pain - Gastrointestinal Gastrointestinal: denies: Constipation, Diarrhea - Genitourinary Genitourinary: reports: Other (unable to sense when he is urinating or defecating). denies: Dysuria - Psychiatric Psychiatric: denies: Depression, Anxiety, Suicidal - Hematologic/Lymphatic Hematologic/Lymphatic: reports: Anemia (1. anemia of chronic disease, 2. autoimmune hemolytic anemia, 3. iron deficiency anemia) Physical Examination - Vital Signs Temperature: 98.1 C Pulse Rate: 54 O2 Saturation: 96 Blood Pressure: 140/75 - Physical Exam General Appearance: positive: No acute distress Eyes Bilateral: positive: EOMI, No lid inflammation, Conjunctivae nml, No scleral icterus ENT: positive: No signs of dehydration Neck: positive: No JVD, Trachea midline Respiratory: positive: No respiratory distress, Breath sounds nml Cardiovascular: positive: Regular rate & rhythm Skin: positive: No symptoms Extremities: positive: Nml appearance, Pedal edema Neurologic/Psychiatric: positive: Sensation nml, Disoriented to time, Weakness Palliative Care - POLST Patient has POLST: No Pain: No pain Drowsiness: None Nausea: None Anxiety: None Dyspnea: None Anorexia: None Insomnia: Other (Says that staff wake him up at 2-3am to take him to the bathroom.) Constipation: No Feelings of wellbeing/Perceived Quality of Life: Comment (Perceives his life quality as "fair." Really likes that he sees his friends at every meal.) Performance Status: Current level of functioning: Wheelchair bound, requires help with transfers, requires help with ADLs and getting dressed. No longer does IADLs. Multiple falls: 3 in January, 1 so far in Feb. Palliative Care Performance Status: 50% - Palliative Care Discussion: Who is present: The patient and myself Surrogate decision maker: Daughter, Vania Jones is his POA. . Splits time between [place] and [place]. Son: Teto Zhao in [place]. Patient/Family understanding of the illness: Daughter understands he is declining, concerned about the change in his outlook and lack of interest in participating in life. She wonders if he is depressed. The patient recognizes he has memory deficits and has some insights about his situation. Most important goals: The patients friendships at the facility are very important to him and he wants to continue to eat meals with his friends. 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 He was agreeable to starting physical therapy because he wants to get strong enough to walk again, and wants to be active and stay active. He doesnt like being confined to the wheelchair. Patient/family concerns: His daughter is concerned he is depressed. She also thinks he needs a better wheelchair. Being hospitalized is alright with him, if needed. He wants to be DNR and wants to discuss this further with his children. Family Conference: His daughter and son are flying here Feb 26. We agreed to meet at [facility] on . Impression and Recommendations - Palliative Care Impression: This is an 86-year-old man with dementia and a recent GI bleed with complicated anemia, who has history of multiple falls because of a decline in strength, conditioning, cognition and functionality. He is at risk for aspiration from pneumonia secondary to dysphagia, and is also at risk of further falls. He would benefit from evaluation and treatment with PT, as well as a WE[employer] PRODUCTION ART[employer] evaluation and treatment for dysphagia. Recommendations/Counseling Done: 1. Dysphagia: Referral to WEB PRODUCTION ARTIST for evaluation and treatment. 2. Anemia of chronic disease, autoimmune hemolytic anemia, and iron deficiency anemia: Generalized weakness. Refer to PT for evaluation and treatment. Continue ferrous gluconate for TAMI. 3. Advanced Planning: Discussed POLST form with patient; he wants DNR. We will continue conversation about goals of care at family conference in 2 weeks. 4. Dementia: Unclear if he has dementia with depression. Monitor for mood and behavior changes, consider adding an SSRI if indicated. Time Spent: 75 minutes with greater than 50% of this done in counseling and evaluation of his cognitive and mental status, and discussing goals of care.
== END 2017-02-13 10:01 | disposition home or self-care (01) ==
LOC: PC 10:00
PROVIDERS: ATTEND Nurse Practitioner
DX: Z51.5 Encounter for palliative care (principal); K92.2 Gastrointestinal hemorrhage, unspecified; D59.1 Other autoimmune hemolytic anemias; D50.9 Iron deficiency anemia, unspecified; R13.10 Dysphagia, unspecified; F03.90 Unspecified dementia, unspecified severity, without behavioral disturbance, psychotic disturbance, mood disturbance, and anxiety; R53.1 Weakness; I48.91 Unspecified atrial fibrillation; I10 Essential (primary) hypertension; I25.10 Atherosclerotic heart disease of native coronary artery without angina pectoris; Z91.81 History of falling; Z99.3 Dependence on wheelchair

== ENCOUNTER 2017-02-14 17:43 | Outpatient (CLI) | payer MEDICARE | END 2017-02-14 17:44 | disposition critical access hospital (66) | LOC: EMS 17:43 | PROVIDERS: ATTEND Surgery | DX: R53.1 Weakness (principal); R50.9 Fever, unspecified; R41.82 Altered mental status, unspecified | CPT/HCPCS: A0425; A0427 ==

== ENCOUNTER 2017-02-24 14:15 | Outpatient (CLI) | payer MEDICARE ==
--- NOTE | 2017-02-24 17:16 | PROVIDER PROGRESS NOTE ---
Palliative Care Follow Up - Referral Referring Provider: Jenifer Kuhn PA-C Time of Visit: 14:15 Referral setting: Long Term [facility] - Information Sources History obtained from: Family, Caregiver Exam limitations: Clinical condition (Altered mental status; non-responsive, coma) - History of Present Illness Update Brief HPI Update: This is an 86-year-old man who was admitted to hospital twice in less than a month: on 02/14/17 with acute pneumonia (suspected aspiration) and possibly sepsis , as evidenced by elevated lactic acic. He was also hospitalized on 01/27/2017 for GI bleeding, and he had been to ER several times earlier this year due to GI bleeds. He has anemia of chronic disease, autoimmune hemolytic anemia, and iron deficiency anemia. His functional and mental status has had an very steep decline since my initial visit on 02/13/17. During his most recent hospitalization for pneumonia, he was very weak and lethargic, and did not recognize me, but was still verbal. His daughter was also present during that visit, having flown in from out of state. He was discharged to [facility] nursing [facility] on 02/19/17 and started physical therapy. However, his functionality and strength continued to decline, eventually becoming non-responsive to verbal or physical stimuli. He has had periods of sporadic awakeness, but mostly sleeping/unresponsive. During my visit , he was non-responsive to all verbal and physical stimulation. He is lying quietly, without restlessness, frowning, grimacing, and moaning. He does use accessory muscles for breathing. There are no adventitious breath sounds, wheezing or rattling. He is quite thin and frail appearing. He has been unable to swallow and and has been eating "next to nothing," per staff and SORORITY MOTHER. The speech therapist evaluated him as impaired esophageal function at baseline" and changed his diet to puree with no fluids, only applesauce. Due his decline over the past past year, and his more recent, significant decline in the past month, it is likely he is in the process of dying. I spoke by telephone to his daughter who is out of state, and offered anticipatory guidance regarding the end of life course, that he gives no signs of being in pain, and he is not suffering from not eating. The patients son is planning to arrive on 02/26/17 to visit him. We did discuss the possibility that he would not survive that long. Information obtained from patients daughter, nursing staff, and EMR chart notes from hospitalist. Social History - Living Situation Living arrangement: intermediate (Formerly at [facility] assisted [facility], now at SNF for post-acute care and rehabilitation) Living Situation: With caregiver(s) Support System: Daughter and son both live out of state. He has two close friends at [facility] Medications/Allergies - Medications Home Medications: Ambulatory Orders Medication Instructions Recorded Confirmed Metoprolol Tartrate 25 mg PO TID 07/21/15 02/15/17 Potassium Chloride [Klor-Con] 20 meq PO BID 07/21/15 02/15/17 Acetaminophen 650 mg PO Q6H PRN 01/27/17 02/15/17 Allopurinol 150 mg PO DAILY 01/27/17 02/15/17 Cetirizine HCl 10 mg PO DAILY 01/27/17 02/15/17 Ferrous Gluconate 324 mg PO BID 01/27/17 02/15/17 Hydrochlorothiazide 25 mg PO DAILY 01/27/17 02/15/17 Losartan Potassium 100 mg PO DAILY 01/27/17 02/15/17 Multivitamin [Multivitamins] 1 cap PO DAILY 01/27/17 02/15/17 Omeprazole 20 mg PO DAILY 01/27/17 02/15/17 Aspirin [Ronni] 325 mg PO DAILYWM #30 tablet 02/19/17 Levofloxacin [Levaquin] 750 mg PO DAILY #10 tablet 02/19/17 Acetaminophen [Tylenol] 650 mg TX Q4H PRN 02/25/17 02/25/17 Hyoscyamine Sulfate 1 - 2 tab PO Q4H PRN 02/25/17 02/25/17 Lorazepam [Lorazepam Intensol] 0.25 - 1 mg PO Q2H PRN 02/25/17 02/25/17 Morphine Sulfate [Morphine Sulf 0.5 - 1 ml PO Q1H 02/25/17 02/25/17 Oral (Roxanol)] - Allergies Allergies/Adverse Reactions: Allergies Allergy/AdvReac Type Severity Reaction Status Date / Time oxycodone [Oxycodone] Allergy Intermediate Rash Verified 11/18/16 17:20 oxycodone HCl * Allergy Intermediate Rash Verified 11/18/16 17:20 [From Percocet] Penicillins Allergy Mild Rash Verified 11/18/16 17:20 Review of Systems - Constitutional Constitutional: reports: Weakness, Poor appetite - Cardiovascular Cariovascular: reports: Irregular heart rate - Respiratory Respiratory: reports: Apnea (Reported by nursing staff.) - Gastrointestinal Gastrointestinal: reports: Poor appetite - Genitourinary Genitourinary: reports: Incontinence - Musculoskeletal Musculoskeletal: reports: Muscle weakness - Neurological Neurological: reports: General weakness - Psychiatric Psychiatric: reports: Other (Non responsive) - Other Findings Other Findings: ROS unobtainable from patient. Information is from caretaking staff. Physical Examination - Vital Signs Temperature: 98.6 C Pulse Rate: 82 O2 Saturation: 95 Blood Pressure: 130/68 - Physical Exam General Appearance: positive: No acute distress, Other (Coma, unresponsive) ENT: positive: Oral lesions (dry, cracking lips), Dry mucous membranes Neck: positive: Trachea midline Respiratory: positive: Other (Increased respoiratory effort; use of accessory muscles). negative: Wheezes, Rales, Rhonchi Cardiovascular: positive: Other (irregular rhythm) Abdomen: positive: No organomegaly, No distention Skin: positive: Bruising (large hematoma on R hip, and hematoma on R antecubital fossa) Neurologic/Psychiatric: negative: Oriented x3 (non-responsive) Palliative Care - POLST Patient has POLST: Yes POLST Status: DNR, Comfort Measures Pain: No pain, Pain unchanged Drowsiness: Comment (not conscious, not responsive) Nausea: None Anxiety: None Dyspnea: Moderate (4-6) Anorexia: Severe (7-10), Weight loss Insomnia: Other (sleeps excessively) Constipation: Managed Performance Status: Previous level of function prior to this episode: Wheelchair bound, requires help with transfers, requires help with ADLs and getting dressed. No longer does IADLs. Multiple falls: 3 in January, 1 so far in Feb. Current level of functioning: Steep functional decline, altered mental status/ non-responsive, bedbound. He has had two hospitalizations in less than one month , for infection, sepsis, and GI bleed requiring blood transfusion. He also has complicated anemia (hemolytic, anemia of chronic disease, iron deficiency), so is lacking any reserves Palliative Care Performance Status: 10% - Palliative Care Discussion: Who is present: The patient and myself Surrogate decision maker: His daughter, Vania Jones is his POA. . Splits time between [place] and [place]. Son: Teto Zhao in [place]. Patient/Family understanding of the illness: Daughter has understands he is declining rapidly and will likely not survive very long. Most important goals: Remaining comfortable and without distress Patient/family concerns: His daughter reports that he is usually in chronic pain and she is concerned that he is not receiving enough pain medications. He has received several doses of morphine today, I offered anticipatory guidance and education regarding end of life course, and that he is not showing signs of pain, discomfort, or hunger. Impression and Recommendations - Palliative Care Impression: This is an 86-year-old man with dementia, significant combined anemia, and two recent hospitalizations (GI bleed and aspiration pneumonia) within the past month who is experiencing a rapid decline. His Palliative Performance Scale is around 20%, and he is presenting with imminent demise and likely has a life expectancy of hours to days. Recommendations/Counseling Done: 1. Unspecified coma (R4020) Patient was unresponsive, not showing and s/s of pain or distress. Palliative care medications are available and staff are administering them appropriately. I called daughter to reassure her. Demise is likely imminent. 2. 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 SORORITY MOTHER has evaluated impaired esophageal function at baseline and changed to puree diet, no liquids, only applesauce. 3. Advanced Care Planning: Facilitated getting the POLST in place and signed by DPOA out of state and provider. Provided anticipatory guidance and support to daughter. Time Spent: 45 minutes with greater than 50% of this done in coordination of care, counseling, and providing anticipatory guidance on end of life, and symptom management.
== END 2017-02-24 14:16 | disposition home or self-care (01) ==
LOC: PC 14:15
PROVIDERS: ATTEND Nurse Practitioner
DX: Z51.5 Encounter for palliative care (principal); R40.20 Unspecified coma; R62.51 Failure to thrive (child); R63.0 Anorexia; K92.2 Gastrointestinal hemorrhage, unspecified; Z79.82 Long term (current) use of aspirin; Z79.891 Long term (current) use of opiate analgesic
CPT/HCPCS: 99310